=== PATIENT | male | born 1965 | race Caucasian/White ===

== ENCOUNTER 2024-04-25 19:40 | Emergency (ER) | payer OTHER, BC ==
[2024-04-25] MEDS: Ketorolac 60 MG/2 ML SDV IM ONE (21:26)
== END 2024-04-25 21:40 | disposition home or self-care (01) ==
LOC: JD.ED 19:40 → EDBD 19:40 → JD.ED 21:40
DX: M54.50 Low back pain, unspecified (principal); Z79.899 Other long term (current) drug therapy
CPT/HCPCS: 72131; 96372; 99283; J1885